=== PATIENT | female | born 1975 | race Caucasian/White ===

== ENCOUNTER 2023-01-31 10:40 | Emergency (ER) | payer OTHER, SELFPAY ==
--- NOTE | ~2023-01-31 | CT_ITS ---
EXAMINATION: CT abdomen pelvis w con DATE: 01/31/2023 13:08 INDICATION: Right upper quadrant and epigastric pain TECHNIQUE: Computed tomography (CT) of the abdomen and pelvis was performed with 100 cc Omnipaque 350 intravenous contrast. The dose-length product was 1423.19 mGy-cm. Automated exposure control and ite rative reconstruction technique were employed. COMPARISON: None. FINDINGS: Lung bases are unremarkable. Heart size normal. No significant pleural or pericardial effus ion. Fatty infiltration of the liver. Status post cholecystectomy. The spleen, pancreas, adrenal glan ds and kidneys are unremarkable. Nonobstructive bowel pattern. There is a 2.4 cm left ovarian cyst. N ormal appendix. No evidence for appendicitis. Colonic diverticulosis without evidence for diverticuli tis. No free air or free fluid. No abnormal pelvic masses. No significant vascular abnormality. No ly mphadenopathy. No acute osseous abnormality. IMPRESSION: 1. No acute abdominal abnormality. 2: Left ovarian cyst measuring 2.4 cm. 3: Hepatic steatosis. Reviewed, dictated and finalized at location B.
[2023-01-31 11:24] VITALS: BP 149/97; PULSE 78; RESP 17; TEMP 36.8; O2SAT 100
[2023-01-31 11:42] LABS: Basophils Absolute Auto 0.1 K/mm3 (0.0-0.1); Eosinophils Absolute Auto 0.1 K/mm3 (0-0.3); Hematocrit 44.5 % (37.0-47.0); Hemoglobin 15.3 g/dL (12.0-15.0); Immature Granulocyte Absolute 0.03 K/mm3 (0.00-0.031); Immature Granulocyte Percent A 0.4 % (0-0.5); Lymphocytes Absolute Auto 1.76 K/mm3 (0.9-3.2); Lymphocytes Percent Auto 25.2 % (18.3-44.2); Mean Corpuscular HGB Conc 34.4 g/dl (32-36); Mean Corpuscular Hemoglobin 31.6 pg (26-34); Mean Corpuscular Volume 91.9 fl (80-100); Mean Platelet Volume 10.1 fl (7.4-10.4); Monocytes Absolute Auto 0.6 K/mm3 (0.1-0.6); Monocytes Percent Auto 8.9 % (2.6-8.5); Neutrophils Absolute Auto 4.4 K/mm3 (1.3-6.7); Neutrophils Percent Auto 63.5 % (45.5-73.1); Platelet Count Result 349 k/mm3 (150-375); Red Blood Count 4.84 M/mm3 (4.2-5.4); Red Cell Distribution Width 12.6 % (11.5-14.5)
[2023-01-31 11:54] LABS: Alanine Aminotransferase 38 U/L (6-35); Albumin Level 4.5 g/dL (3.5-5.1); Alkaline Phosphatase 74 U/L (38-126); Anion Gap 9 mmol/L (8-16); Aspartate Amino Transferase 44 U/L (14-36); Bilirubin,Total 0.8 mg/dL (0.2-1.3); Blood Urea Nitrogen 4 mg/dL (7-17); Carbon Dioxide 27 mmol/L (22-30); Chloride 103 mmol/L (98-107); Estimated CRCL calculation 97 ml/min; Estimated Glomerular Filt Rate > 60; Glucose 105 mg/dL (65-110); Lipase 92 U/L (23-300); Potassium 3.9 mmol/L (3.4-5.0); Sodium 139 mmol/L (137-145)
[2023-01-31 12:03] LABS: Appearance Urine Clear (Clear); Bilirubin Urine Negative (Negative); Blood Urine Negative (Negative); Color Urine Yellow (Yellow); Glucose Urine UA Negative (Negative); Ketones Urine 1+ mg/dL (Negative); Leukocyte Esterase Ur Negative LEU/UL (Negative); Nitrate Urine Negative (Negative); Protein Urine Negative (Negative); Specific Grav Ur 1.006 (1.001-1.035); Urobilinogen Urine 0.2 mg/dL (<2.0)
[2023-01-31 12:07] LABS: Add Urine Microscopic? NO
--- NOTE | 2023-01-31 12:37 | ED.ABDPAIN ---
HPI - Abdominal Pain General Chief Complaint: Abdominal Pain Stated Complaint: abd pain Time Seen by Provider: 01/31/23 12:10 History of Present Illness HPI narrative: 47-year-old female presented the emergency department for evaluation of right upper quadrant pain. Patient states symptoms have been ongoing for the last few days. Patient does describe nausea and vomiting with this. Patient states the pain is similar to when she had her gallbladder removed back in October. Related Data Allergies Allergy/AdvReac Type Severity Reaction Status Date / Time No Known Allergies Allergy Verified 01/31/23 12:51 Review of Systems Review of Systems: All systems reviewed & are unremarkable except as noted in HPI and below Exam Narrative: APPEARANCE: Well appearing, uncomfortable due to right upper quadrant pain HEAD: normocephalic, atraumatic. EYES: PERRLA/EOMI, conjunctivae clear. NOSE: Normal no drainage EARS:TMS clear with good light reflex. THROAT: Pharynx clear, no exudate. NECK: Supple. No adenopathy, no masses. RESPIRATORY: Airway patent, respirations nonlabored. Clear to auscultation bilaterally, no rales, rhonchi, wheezing. CARDIOVASCULAR: Regular rate and rhythm without murmurs rubs or gallops. ABDOMINAL: Soft, epigastric and right upper quadrant tenderness to palpation MUSCULOSKELETAL: Moves all extremities. Strength/ROM intact, No edema, No calf tenderness. NEURO: Alert. Cranial nerves II through XII intact. Grossly intact SKIN: Warm, dry. Normal Color Course Course Emergency Course: 47-year-old female with epigastric pain. Patient was afebrile with no leukocytosis. Patient's CMP was similar to her baseline. No significant elevations in T. bili AST ALT or alk phos. Patient's UA showed no evidence of urinary tract infection. CT showed no significant abnormality. Patient family were updated on the results of the work-up. Patient was treated with GI cocktail with no significant improvement. On reexamination patient had only minimal tenderness to palpation and patient was well-appearing. Patient and family are comfortable with the plan for discharge and close follow-up. Vital Signs Vital signs: Vital Signs Temperature 98.2 F 01/31/23 11:24 Pulse Rate 78 01/31/23 11:24 Respiratory Rate 17 01/31/23 11:24 Blood Pressure 149/97 H 01/31/23 11:24 Pulse Oximetry 100 01/31/23 11:24 Oxygen Delivery Room Air 01/31/23 11:24 Temperature 98.2 F 01/31/23 11:24 Pulse Rate 78 01/31/23 11:24 Respiratory Rate 17 01/31/23 11:24 Blood Pressure 149/97 H 01/31/23 11:24 Pulse Oximetry 100 01/31/23 11:24 Oxygen Delivery Room Air 01/31/23 11:24 MDM - Abdominal Pain Differential Diagnosis Differential diagnosis: Likely abdominal pain, acute appendicitis, calculus of kidney, constipation, diverticulitis, gastroenteritis, pancreatitis and small bowel obstruction Lab Data Attestation: I reviewed the patient's lab results. 01/31/23 11:32 01/31/23 11:32 Labs: Lab Results 01/31/23 01/31/23 Range/Units 11:32 11:48 WBC 7.0 (4.5-10.0) K/mm3 RBC 4.84 (4.2-5.4) M/mm3 Hgb 15.3 H (12.0-15.0) g/dL Hct 44.5 (37.0-47.0) % MCV 91.9 (80-100) fl MCH 31.6 (26-34) pg MCHC 34.4 (32-36) g/dl RDW 12.6 (11.5-14.5) % Plt Count 349 (150-375) k/mm3 MPV 10.1 (7.4-10.4) fl Immature Gran % (Auto) 0.4 (0-0.5) % Neut % (Auto) 63.5 (45.5-73.1) % Lymph % (Auto) 25.2 (18.3-44.2) % Dane % (Auto) 8.9 H (2.6-8.5) % Eos % (Auto) 1.0 (0-4.4) % Baso % (Auto) 1.0 (0.2-1.2) % Lymph # (Auto) 1.76 (0.9-3.2) K/mm3 Dane # (Auto) 0.6 (0.1-0.6) K/mm3 Eos # (Auto) 0.1 (0-0.3) K/mm3 Baso # (Auto) 0.1 (0.0-0.1) K/mm3 Abs Immat Gran (auto) 0.03 (0.00-0.031) K/mm3 Absolute Neuts (auto) 4.4 (1.3-6.7) K/mm3 Absolute Nucleated RBC 0.0 (0.0-0.012) K/mm3 Nucleated RBC % 0.0 (0.0-0.2) % Sodium 139 (137-145
[2023-01-31] MEDS: ONDANSETRON INJ 4 MG/2 ML VIAL IV PUSH ×2 (12:52→14:13)
[2023-01-31] MEDS: HYDROmorphone HCL INJ (*CRX) 1 MG/ML SYR 0.5 MG IV PUSH (12:52)
[2023-01-31] MEDS: BELLADONNA ALK/PHENOB ELIX 10 ML, MAG HYDROX/ALUMINUM HYD/SIMETH 30 ML, LIDOCAINE HCL 2... PO (13:48)
== END 2023-01-31 14:23 | disposition home or self-care (01) ==
PROVIDERS: Emergency Provider Emergency Medicine
DX: R10.13 Epigastric pain (principal); K76.0 Fatty (change of) liver, not elsewhere classified; N83.202 Unspecified ovarian cyst, left side; Z90.49 Acquired absence of other specified parts of digestive tract
CPT/HCPCS: 36415; 74177; 80053; 81003; 81025; 83690; 85025; 96374; 96375; 96376; 99284; A9270; J1170; J2405; Q9967

== ENCOUNTER 2023-09-30 12:45 | Emergency (ER) | payer OTHER, SELFPAY ==
--- NOTE | 2023-09-30 13:02 | ED.WEAKNESS ---
HPI - Weakness General Chief complaint: Weakness Stated complaint: Bodyache, Lethargic, Short of Breath Time Seen by Provider: 09/30/23 13:03 Source: patient Mode of arrival: ambulatory Limitations: no limitations History of Present Illness HPI Narrative: 47 y/o female presented for c/o fatigue and weakness, with intermittent diarrhea and decreased appetite x2.5 weeks. States she feels full quickly when eating, and endorses feeling shaky at times. Today she feels she cannot take a full deep breath. Pt is following with a GI doc at [facility] for unknown GI problems with belching and bloating. Taking Erythromycin and omeprazole. Denies abdominal pain, vomiting, cough, chest pain, palpitations, or fever. Related Data Home Medications Medication Instructions Recorded Confirmed erythromycin 250 mg tablet 250 mg PO DAILY 09/30/23 09/30/23 Allergies Allergy/AdvReac Type Severity Reaction Status Date / Time No Known Allergies Allergy Verified 09/30/23 13:17 Review of Systems Review of Systems: CONSTITUTIONAL: Reports malaise Denies body aches, fever, chills, or sweats. EYES: Denies visual changes, redness, or discharge. ENT: Denies rhinorrhea, congestion, sore throat, or otalgia. CARDIOVASCULAR: Denies chest pain, palpitations, or edema. RESPIRATORY: Denies cough reports dyspnea. GASTROINTESTINAL: Denies abdominal pain, nausea, vomiting, reports bloating, diarrhea. GENITOURINARY: Denies dysuria or hematuria. SKIN: Denies rash, itching, or wounds. MUSCULOSKELETAL: Denies back pain, joint pain, or myalgia. NEUROLOGIC: Denies headache All systems reviewed & are unremarkable except as noted in HPI and below [facility] Past Medical History Medical History (Updated 09/30/23 @ 14:37 by Liza Marroquin APRN) Hypothyroid Comments At time of signature, I have reviewed and agree with nursing past medical, surgical, social and family history unless otherwise noted. Please see nursing chart for further information. There is no relevant family history pertinent to the presenting complaint Exam Narrative: GENERAL: mildly ill-appearing, and in no acute distress. EYES: EOMI. No redness or drainage. Conjunctivae normal. ENT: Mucous membranes pink and moist. No rhinorrhea. TMs normal bilaterally. Throat normal. Uvula midline. NECK: Normal AROM. Supple. CHEST: No respiratory distress. Clear to auscultation. HEART: Regular rate and rhythm. No murmur appreciated. Normal peripheral pulses. ABDOMEN: Soft, nontender, nondistended, normal active bowel sounds. EXTREMITIES: Normal range of motion. No edema. SKIN: Warm, dry, no rash. Capillary refill normal. Normal skin turgor. NEURO: No focal deficits. Alert and oriented x3. Gait steady. PSYCH: Flat affect. Course Course Emergency Course: Patient is aware of diagnosis, understands and agrees to treatment plan. Anticipatory guidance given. Patient agrees to follow-up as directed and is aware of reasons to seek care at the emergency department. Portions of this record may have been created with voice recognition software Level of Care: Express Care Visit Vital Signs Vital signs: Vital Signs Temperature 97.8 F 09/30/23 13:07 Pulse Rate 85 09/30/23 13:07 Respiratory Rate 18 09/30/23 13:07 Blood Pressure 128/88 09/30/23 13:07 Pulse Oximetry 100 09/30/23 13:07 Oxygen Delivery Room Air 09/30/23 13:07 Temperature 97.8 F 09/30/23 13:07 Pulse Rate 85 09/30/23 13:07 Respiratory Rate 18 09/30/23 13:07 Blood Pressure 128/88 09/30/23 13:07 Pulse Oximetry 100 09/30/23 13:07 Oxygen Delivery Room Air 09/30/23 13:07 MDM - Weakness MDM Narrative Medical decision making narrative: Advised ER transfer for c/o 2 weeks of fatigue and decreased po intake. Differential Diagnosis Differential diagnosis: Likely acute myocardial infarction, anemia, hypoglycemia, hypothyroidism, rhabdomyolysis, sepsis and dehydration Discharge Plan Discharge
[2023-09-30 13:07] VITALS: BP 128/88; PULSE 85; RESP 18; TEMP 36.6; O2SAT 100
== END 2023-09-30 13:20 | disposition short-term general hospital (02) ==
PROVIDERS: Emergency Provider Nurse Practitioner Family
DX: R53.1 Weakness (principal); E03.9 Hypothyroidism, unspecified; Z79.899 Other long term (current) drug therapy
CPT/HCPCS: 99212; G0463